=== PATIENT | male | born 1975 | race Caucasian/White ===

== ENCOUNTER → 2020-12-09 | Outpatient (CLI) | payer OTHER | LOC: KOH-I 15:17 | DX: R05 Cough (principal); M79.672 Pain in left foot; M50.30 Other cervical disc degeneration, unspecified cervical region; M51.34 Other intervertebral disc degeneration, thoracic region; M51.36 Other intervertebral disc degeneration, lumbar region | CPT/HCPCS: 71046; 72040; 72070; 72100; 73630 ==